=== PATIENT | male | born 1955 | race Caucasian/White ===

== ENCOUNTER → 2019-10-03 | Outpatient (CLI) | payer MEDICARE, SELFPAY | END | disposition home or self-care (01) | PROVIDERS: PCP Family Medicine; Referring Provider Family Medicine; Visit Provider Family Medicine | DX: J02.9 Acute pharyngitis, unspecified (principal); J06.9 Acute upper respiratory infection, unspecified | CPT/HCPCS: 87635; G2023; U0003 ==

== ENCOUNTER 2020-11-04 11:50 | Emergency (ER) | payer MEDICARE, SELFPAY ==
[2020-11-04] VITALS (9 sets, daily range): BP systolic 131–145; BP diastolic 65–83; PULSE 85–91; RESP 19–26; TEMP 37.2–38.2; O2SAT 95–100; BMI 31.4
--- NOTE | 2020-11-04 11:56 | NURSING ---
NO OLD EKGS
--- NOTE | 2020-11-04 12:09 | EKG12_ITS ---
Test Reason : SYNCOPE Blood Pressure : / mmHG Vent. Rate : 091 BPM Atrial Rate : 091 BPM P-R Int : 142 ms QRS Dur : 084 ms QT Int : 330 ms P-R-T Axes : 051 002 021 degrees QTc Int : 405 ms Normal sinus rhythm Low voltage QRS (Limb Leads) Inferior infarct , age undetermined Abnormal ECG Confirmed by SAUL GALLEGOS, NITO ([id number]), copy editor ALICJA ARRINGTON ([id number]) on 11/09/2020 9:43:05 AM Referred By: ABDIRAHMAN/RAUDEL Confirmed By:NITO HUGHES MD
--- NOTE | 2020-11-04 12:11 | EDS_ITS ---
HPI History of Present Illness Chief Complaint: Syncope Detail of Chief Complaint: Fever and near syncope Informant: patient Onset/Context/Timing Onset: Today Current Severity: Mild Maximum Severity: Mild Narrative Narrative: 64-year-old male denies any significant past medical history. Currently on no medications. Recently did have a prostate infection which she initially was on Bactrim and had a rash and was changed to cephalosporin. States has been doing well the last 2 days he has had URI type symptoms. Low- grade fever in the 100s with nonproductive cough. He does not feel short of breath. He denies any nausea or vomiting. Has had mild diarrhea. Denies any dysuria. Did not get vaccinated for Covid. Prior similar symptoms: No Recent Illness/Hospitalization: No PFSH PFSH no medical history Home Medications dexamethasone [Decadron] 6 mg PO DAILY 7 Days #7 tab 11/04/20 [Rx Last Taken Unknown] Allergy/AdvReac Type Severity Reaction Status Date / Time ciprofloxacin [From Cipro] Allergy Other Verified 11/04/20 11:52 Sulfa (Sulfonamide Allergy Rash Verified 11/04/20 11:52 Antibiotics) Social History Smoking Status: Never smoker ROS ROS ED ROS Narrative Fever, cough and loose stools. Review of Systems ROS Unobtainable: Denies due to encephalopathy Constitutional Constitutional ED: Reports fever(s) Eyes Eyes: Denies change in vision ENT ENT ED: Denies ear pain or sore throat Cardiovascular Cardiovascular: Denies chest pain or palpitations Respiratory/Chest Respiratory/Chest: Reports cough; Denies dyspnea Gastrointestinal Gastrointestinal: Reports diarrhea; Denies abdominal pain, nausea or vomiting Genitourinary Genitourinary ED: Denies dysuria or hematuria Musculoskeletal Musculoskeletal: Denies myalgias Integumentary Denies rash Neurologic Neurologic: Denies headache(s) Psychiatric Psychiatric: Denies depression Endocrine Endocrinology: Denies polyuria Allergic/Immunologic Allergic/Immunologic ED: Denies urticaria EXAM Physical Exam Narrative Exam Narrative: 64-year-old male no acute distress. Vital signs are stable. He has a low-grade temperature 100.7. HEENT exam unremarkable. Moist remembers. Neck nontender no lymphadenopathy. No meningismus. Lungs clear to auscultation bilaterally. Heart regular rhythm no murmur rate about 90. Abdomen soft nontender normal bowel sounds no peritoneal signs. Moving all 4 extremities. Nontender. No rash. No edema. Back nontender. Neurologically is awake alert with no focal motor deficits. Const Vital Signs: 11/04/20 11:52 11/04/20 11:55 11/04/20 12:18 Temperature 100.7 F H 100.7 F H 100.7 F H Temperature Source Oral Oral Oral Pulse Rate 90 90 91 Respiratory Rate 25 H 25 H 21 H Respiratory Effort Normal Non-Labored Respiratory Pattern Normal Blood Pressure 133/81 H 133/81 H 134/80 H Blood Pressure Mean 98 98 98 Pulse Ox 99 99 96 Oxygen Delivery Method Room Air Room Air Nasal Cannula 11/04/20 12:23 11/04/20 13:09 11/04/20 13:18 Temperature 100.7 F H 98.9 F Temperature Source Oral Temporal Pulse Rate 87 85 Respiratory Rate 23 H 26 H Respiratory Effort Respiratory Pattern Blood Pressure 138/65 H Blood Pressure Mean 89 Pulse Ox 99 Oxygen Delivery Method Room Air 11/04/20 14:25 11/04/20 14:28 Temperature 99.7 F H Temperature Source Oral Pulse Rate Respiratory Rate Respiratory Effort Respiratory Pattern Blood Pressure 131/81 H Blood Pressure Mean 97 Pulse Ox 95 Oxygen Delivery Method Room Air Positive well nourished and well developed; Negative for obese, cachectic, contractures or unkempt General Appearance ED: well developed and NAD; Negative for unkempt, cachectic, contractures, cyanotic or diaphoretic Nutritional Appearance: Negative for cachectic or obese HEENT Reports moist mucous membranes Negative for trauma or tenderness Eyes PERRL and EOMs intact bilaterally Neck no lymphadenopathy, supple and no JVD General: Negative for tenderness Chest Wall inspection of chest normal and palpation of chest normal Resp normal respiratory effort and clear to auscultation bilaterally Auscultation: Negative for rales, rhonchi or wheezes Cardio regular rate, regular rhythm, S1 normal heart sound, S2 normal heart sound and no murmurs GI normal to inspection, nondistended, normoactive bowel sounds, non-tender, non- distended and no masses Inspection: Negative for abdominal distention Auscultation: normoactive bowel sounds Palpation: soft; Negative for tender, guarding or rebound tenderness present Back/Spine no CVA tenderness General Back: Negative for CVA tenderness Extremity normal to inspection General Extremety ED: Negative for edema or tenderness General Extremity: Negative for edema Neuro oriented x3, CN's II-XII intact bilaterally and no sensory deficits noted Sensorium / Orientation: alert; Negative for orientation impaired, lethargic or stuporous Motor Exam: strength 5/5 throughout Psych mental status grossly normal Appearance: Negative for unkempt Attitude: No agitated Mood & Affect: Negative for depressed, anxious or tearful Skin no rashes or lesions noted, no wounds and skin turgor normal MDM MDM MDM Narrative Medical decision making narrative: 64-year-old male with a low-grade fever and cough. Today he had near syncope while getting out of bed and sitting at the table. He will be worked up for infectious etiology. Will undergo a sepsis work-up. To be treated with a liter of normal saline and p.o. Tylenol for his low-grade temperature. Repeat exam patient doing well at 2:30 PM. Labs are basically negative. Chest x-ray unremarkable. Covid is positive. He will be placed on Decadron. Outpatient follow-up for possible monoclonal antibody therapy. Return if feeling worse. Lab Data Attestation: I reviewed the patient's lab results. Lab results narrative: CBC showed a white count of 5.9. Hemoglobin 14. PT/INR PTT unremarkable. Electrolytes show sodium 135. Gap of 5. Creatinine 1.1. Glucose 107. Lactic acid 1.1. Urinalysis normal. Rapid Covid is positive. Labs: Laboratory Results - last 24 hr 11/04/20 11/04/20 11/04/20 12:45 12:45 12:45 WBC 5.9 RBC 4.91 Hgb 14.7 Hct 44.5 MCV 90.6 MCH 29.9 MCHC 33.0 RDW Std Deviation 44.7 H RDW Coeff of Mack 13.3 Plt Count 120 L MPV 9.8 Immature Gran % (Auto) 0.300 Neut % (Auto) 88.1 H Lymph % (Auto) 6.5 L Dewitt % (Auto) 4.6 Eos % (Auto) 0.3 Baso % (Auto) 0.2 Absolute Neuts (auto) 5.2 Absolute Lymphs (auto) 0.38 L Nucleated RBC % 0 PT 13.2 INR 1.1 APTT 36.3 H Sodium 135 L Potassium 3.8 Chloride 102 Carbon Dioxide 28.0 Anion Gap 5 BUN 16 Creatinine 1.16 Estim Creat Clear Calc 60.60 Est GFR (MDRD) Af Amer 81 Est GFR (MDRD) Non-Af 67 BUN/Creatinine Ratio 13.8 Glucose 107 H Lactic Acid Calcium 8.3 L Total Bilirubin 0.50 AST 25 ALT 40 Alkaline Phosphatase 73 Total Protein 7.4 Albumin 3.7 Globulin 3.7 Albumin/Globulin Ratio 1.0 Urine Color Urine Clarity Urine pH Ur Specific Bledsoe Urine Protein Urine Glucose (UA) Urine Ketones Urine Occult Blood Urine Nitrite Urine Bilirubin Urine Urobilinogen Ur Leukocyte Esterase Urine RBC Urine WBC Ur Squamous Epith Cells Urine Bacteria Urine Mucus 11/04/20 11/04/20 12:45 13:30 WBC RBC Hgb Hct MCV MCH MCHC RDW Std Deviation RDW Coeff of Mack Plt Count MPV Immature Gran % (Auto) Neut % (Auto) Lymph % (Auto) Dewitt % (Auto) Eos % (Auto) Baso % (Auto) Absolute Neuts (auto) Absolute Lymphs (auto) Nucleated RBC % PT INR APTT Sodium Potassium Chloride Carbon Dioxide Anion Gap BUN Creatinine Estim Creat Clear Calc Est GFR (MDRD) Af Amer Est GFR (MDRD) Non-Af BUN/Creatinine Ratio Glucose Lactic Acid 1.1 Calcium Total Bilirubin AST ALT Alkaline Phosphatase Total Protein Albumin Globulin Albumin/Globulin Ratio Urine Color Yellow Urine Clarity Clear Urine pH 6.5 Ur Specific Bledsoe 1.010 Urine Protein Negative Urine Glucose (UA) Normal Urine Ketones Negative Urine Occult Blood Negative Urine Nitrite Negative Urine Bilirubin Negative Urine Urobilinogen Normal Ur Leukocyte Esterase Negative Urine RBC 0 SEEN Urine WBC 0 SEEN Ur Squamous Epith Cells 0-5 SEEN Urine Bacteria 0 SEEN Urine Mucus 0 SEEN Radiography Chest X-Ray - ED: 1 View, Read by ED Physician, Normal, Heart, Lungs, Mediastinum, Bony Structures, No Acute Disease and Chronic Changes Diagnostic Testing: Radiology Impression Chest X-Ray 11/04/20 13:00 IMPRESSION: There is prominence of the central pulmonary arteries. Electronically Signed: Justin Marrero MD at 13:19 EDT , Service support , Rhythm Strip Rhythm Strip: Sinus Rhythm Rate: 91 Ectopy: None EKG Initial EKG: Attestation: I personally reviewed and interpreted this EKG as follows: Interpretation: Sinus Rhythm and No Acute Injury Pattern Comments: Normal sinus rhythm rate of 91 no acute signs of MN or ischemia. Discharge Plan Triage Chief Complaint: Syncope ED Provider: Felix Rodrigez Dx/Rx/DC Orders Clinical Impression: COVID-19, Near syncope Instructions: Human Coronaviruses Prescriptions: New dexamethasone [Decadron] 6 mg tablet 6 mg PO DAILY 7 Days Qty: 7 RF: 0 Primary Care Provider: Baldemar Tatum Referrals: Baldemar Tatum MD [Primary Care Provider] - Activity Restrictions/Additional Instructions: Plenty of fluids and rest. Tylenol for any fever Decadron daily. Follow-up if not improving return emergency department if feeling a lot worse. At this time you do not need to be admitted. Disposition Disposition: Home, Self Care
[2020-11-04] MEDS: Acetaminophen 500 MG Tablet 1000 MG PO (12:28)
[2020-11-04] MEDS: Ipratropium/Albuterol Sulfate 3 ML AMPUL.NEB INHALATION (12:35)
[2020-11-04] MEDS: 0.9% Normal Saline 1,000 ML 999 ML IV (12:51)
[2020-11-04 12:56] LABS: Absolute Lymphocyte Count 0.38 X10^3/uL (0.83-4.51); Absolute Neutrophil Count 5.2 X10^3/uL (2.0-7.7); Basophil# 0.01 X10^3/uL; Basophil% 0.2 % (0-1); Eosinophil# 0.02 X10^3/uL; Eosinophils% 0.3 % (0-5); Hematocrit 44.5 % (40-54); Hemoglobin 14.7 g/dL (13.0-16.5); Lymphocyte # 0.38 X10^3/ul (0.83-4.51); Lymphocyte % 6.5 % (19-41); Mean Corpuscular Hgb 29.9 pg (27.0-32.0); Mean Corpuscular Volume 90.6 fL (80-94); Mean Platelet Vol. 9.8 fl (6.2-12.0); Monocyte# 0.27 X10^3/uL; Monocyte% 4.6 % (0-10); NRBC Flagged by Analyzer 0 % (0-5); Neutrophil # 5.17 X10^3/uL (2.7-7.7); Neutrophil % 88.1 % (47-70); POSITIVE DIFFERENTIAL YES; Platelet Count 120 K/mm3 (150-450); RBC Distribution Width CV 13.3 % (11.6-14.6); RBC Distribution Width SD 44.7 fl (35.1-43.9); Red Blood Count 4.91 M/mm3 (4.6-6.2); White Blood Count 5.9 K/mm3 (4.4-11.0)
--- NOTE | 2020-11-04 13:00 | RAD_ITS ---
STUDY: X-RAY CHEST REASON FOR EXAM: Male, 64 years old. Fever TECHNIQUE: Single AP portable view of the chest. COMPARISON: None. FINDINGS: EKG electrodes are seen. The lungs are clear and expanded. There is no demonstrated pleural abnormality. Normal size heart. Normal mediastinum and mary alice. There is prominence of the pulmonary hilar arteries without peripheral pulmonary vascular congestion, suggesting pulmonary hypertension. Normal visualized aortic arch and descending thoracic aorta. Normal visualized thoracic spine. Normal visualized ribs, clavicles, and shoulders. There is no demonstrated abnormality of the visualized soft tissue structures of the upper abdomen. RAD/Chest 1 View (Portable) IMPRESSION: There is prominence of the central pulmonary arteries. Electronically Signed: Justin Marrero MD at 13:19 EDT , Service support ,
[2020-11-04 13:02] LABS: Differential Indicated SCAN CRITERIA MET
[2020-11-04 13:03] LABS: International Normalized Ratio 1.1; Prothrombin Time (Protime)PT. 13.2 SECONDS (11.7-14.9)
[2020-11-04 13:04] LABS: Partial Thromboplast Time 36.3 Seconds (24.1-36.2)
[2020-11-04 13:13] LABS: AST(SGOT) 25 U/L (15-37); Alanine Aminotransfer ALT/SGPT 40 U/L (16-61); Albumin, Serum 3.7 g/dL (3.2-5.0); Alkaline Phosphatase 73 U/L (45-117); Anion Gap 5 (5-15); BUN 16 mg/dL (7-18); BUN/Creat Ratio 13.8 RATIO (10-20); Calcium,Total 8.3 mg/dL (8.5-10.1); Chloride 102 mmol/L (98-107); Creatinine, Serum 1.16 mg/dL (0.70-1.30); EST Glomerular Filtration Rate 67 mL/min (>60); Est Glom Filt Rate - Afr Amer 81 mL/min (>60); Globulin 3.7 g/dL (2.2-4.2); Glucose 107 mg/dL (74-106); Potassium 3.8 mmol/L (3.5-5.1); Protein, Total 7.4 g/dL (6.4-8.2); Sodium Level 135 mmol/L (136-145)
[2020-11-04 13:20] LABS: Lactic Acid 1.1 mmol/L (0.4-1.9)
[2020-11-04 13:35] LABS: Bacteria 0 SEEN /hpf (None Seen); Mucous, Urine 0 SEEN /hpf (<or=2+); Red Blood Cells-Urine 0 SEEN /hpf (0-5); White Blood Cells 0 SEEN /hpf (0-5)
[2020-11-04 13:37] LABS: Color, Urine Yellow (Yellow); Glucose, Dipstick Normal (Normal); Ketone-Dipstick Negative (Negative); Leukocyte Esterase-Dipstick Negative /ul (Negative); Nitrite-Dipstick Negative (Negative); Occult Blood-Urine Negative /ul (Negative); Protein-Dipstick Negative (Negative); Urine Bilirubin Dipstick Negative (Negative); Urine Clarity Clear (Clear); Urine Urobilinogen Normal (Normal); Urine pH 6.5 (5.0 - 8.0)
[2020-11-04 13:44] LABS: Squamous Epithelial Cells - UA 0-5 SEEN /hpf (0-5)
[2020-11-04] MEDS: dexAMETHasone 4 MG Tablet 6 MG PO (15:03)
== END 2020-11-04 15:09 | disposition home or self-care (01) ==
PROVIDERS: Emergency Provider Emergency Medicine; PCP Family Medicine
DX: U07.1 COVID-19 (principal); R55 Syncope and collapse; R50.9 Fever, unspecified
CPT/HCPCS: 71045; 80053; 81001; 83605; 85025; 85610; 85730; 87040; 87086; 87426; 93005; 94640; 96360; 96361; 99285; J7030